=== PATIENT | female | born 1985 | race Caucasian/White ===

== ENCOUNTER 2021-10-09 08:49 | Emergency (ER) | payer BC ==
[~2021-10-09] VITALS: Ht 180.3 cm; Wt 59.0 kg
[2021-10-09] MEDS ORDERED: predniSONE 50 MG TABLET ONE (09:11)
[2021-10-09] MEDS ORDERED: predniSONE 50 MG TABLET PO ONE (09:15)
[2021-10-09] MEDS ORDERED: PRED50TA PO (09:19)
--- NOTE | 2021-10-09 09:30 | NUR ---
PATIENT WAS SEEN BY MD. PREDNISONE GIVEN (WITH FOOD) ORDERED. DC, RX AND FOLLOW UP INSTRUCTIONS GIVEN AND EXPLAINED TO PATIENT WHO STATES SHE UNDERSTANDS ALL INSTRUCTIONS.
== END 2021-10-09 09:31 | disposition home or self-care (01) ==
LOC: ER 08:49
DX: L50.9 Urticaria, unspecified (principal)
CPT/HCPCS: 99283; J7512; A4663